=== PATIENT | female | born 1950 | race Two or more races ===

== ENCOUNTER 2017-08-20 12:55 | Outpatient (CLI) | payer OTHER ==
[~2017-08-20 12:55] MED LIST: NABUMETONE500 MG PO; PERCOCET 5/3251 TAB PO
== END 2017-08-20 13:03 | disposition home or self-care (01) ==
LOC: RAD 501 12:55
DX: M25.561 Pain in right knee (principal); M25.562 Pain in left knee

== ENCOUNTER 2018-03-25 15:22 | Outpatient (CLI) | payer OTHER | END 2018-03-25 15:30 | disposition home or self-care (01) | LOC: RAD 15:22 | DX: I11.9 Hypertensive heart disease without heart failure (principal) ==